=== PATIENT | male | born 1940 | race Caucasian/White ===

== ENCOUNTER 2020-12-04 08:00 | Observation (INO) ==
[~2020-12-04 08:00] MED LIST: Buffered Lidocaine 1% SYRIN 1 ml INTRADERM ONE; Dexamethasone IV 4 MG/ML VIAL 1 ml VIAL IV SLOW PU ONE; Famotidine IV 10 MG/ML 2 ml VIAL (20 mg) IV ONE; Lactated Ringers 1000 ml BAG 1,000 ML IV SCH
[2020-12-04] MEDS ORDERED: Propofol 10 mg/ml 100 ML BTL 0 ML ONE (09:27)
[2020-12-04] MEDS ORDERED: Acetaminophen IV 1 GM/100ML 1,000 MG/100 ML VIAL IVPB ONE (11:48)
[2020-12-04] MEDS ORDERED: Naloxone 0.4 mg VIAL 0.4 mg/ml 1 ml VIAL IV PRN (11:48)
[2020-12-04] MEDS ORDERED: Prochlorperazine 5 mg/ml 2 ml VIAL (10 mg) IV PRN (11:48)
[2020-12-04] MEDS ORDERED: Morphine 4 MG/ML VIAL (1 ml) IV PRN (11:48)
[2020-12-04] MEDS ORDERED: fentaNYL 100 mcg/2 ml 50 MCG/ML VIAL IV PRN (11:48)
[2020-12-04] MEDS ORDERED: Midazolam 2 mg/2 ml VIAL 1 mg/ml 2 ml VIAL (2 mg) ONE (12:14)
[2020-12-04] MEDS ORDERED: Ondansetron 4 mg VIAL 2 MG/ML 2 ml VIAL ONE (13:03)
[2020-12-04] MEDS ORDERED: fentaNYL 100 mcg/2 ml 50 MCG/ML VIAL ONE (13:21)
[2020-12-04] MEDS ORDERED: diPHENhydraMINE IV 50 MG/ML 1 ml VIAL (BENADRYL) IV PRN (13:39)
[2020-12-04] MEDS ORDERED: Ondansetron ODT 4 mg TAB 4 MG TAB PO PRN (13:39)
[2020-12-04] MEDS ORDERED: Magnesium Hydroxide LIQ 30 ML UDC PO PRN (13:39)
[2020-12-04] MEDS ORDERED: Lactulose 30 ml UDC PO PRN (13:39)
[2020-12-04] MEDS ORDERED: Ondansetron 4 mg VIAL 2 MG/ML 2 ml VIAL IV PRN (13:39)
[2020-12-04] MEDS ORDERED: Morphine 2 MG/ML SYRINGE IV PRN (13:39)
[2020-12-04] MEDS ORDERED: diPHENhydraMINE 25 mg TAB PO PRN (13:39)
[2020-12-04] MEDS ORDERED: Glycopyrrolate IV 0.2 MG/ML 1 ML VIAL ONE (13:47)
[2020-12-04] MEDS ORDERED: Acetaminophen IV 1 GM/100ML 100 ML ONE ×2 (13:47→15:20)
[2020-12-04] MEDS ORDERED: Propofol 10 MG/ML 20 ML BTL ONE (14:37)
[2020-12-04] MEDS ORDERED: PTO: Travoprost Z 0.004% OPHTH (NF) 2.5 ML BTL BOTH EYES SCH ×2 (18:00→20:00)
[2020-12-04] MEDS: Lactated Ringers 1000 ml BAG 1,000 ML IV SCH (18:18)
[2020-12-04] MEDS: ceFAZolin 1 GM ADVAN 1 GM in NS 0.9% 50 ML 50 ML IVPB SCH (20:51)
[2020-12-04] MEDS: Magnesium Hydroxide LIQ 30 ML UDC PO SCH (20:51)
[2020-12-05] MEDS: ceFAZolin 1 GM ADVAN 1 GM in NS 0.9% 50 ML 50 ML IVPB SCH ×2 (04:36→12:29)
[2020-12-05] MEDS: Lactated Ringers 1000 ml BAG 1,000 ML IV SCH (04:36)
[2020-12-05 05:49] LABS: Hematocrit 33 % (42-52); Hemoglobin 11.4 g/dL (14.0-18.0); Mean Platelet Volume 8.2 fL (7.4-10.4); Platelet Count 198 10^3/uL (150-450)
[2020-12-05 06:05] LABS: Calcium 8.6 mg/dL (8.6-10.3); EGFR African American 99.8 (>60); EGFR Non-African American 82.5 (>60)
[2020-12-05] MEDS ORDERED: Pneumococcal Vac 23-Polyvalent IM ONE (09:00)
[2020-12-05] MEDS ORDERED: Vitamin THERAPEUTIC TAB PO SCH (09:00)
[2020-12-05] MEDS ORDERED: PTO: Timolol 0.5% OPTH.SOL BTL BOTH EYES SCH (09:00)
[2020-12-05] MEDS: Magnesium Hydroxide LIQ 30 ML UDC PO SCH (09:59)
[2020-12-05 11:12] VITALS: BP 147/62
== END 2020-12-05 13:45 | disposition home or self-care (01) ==
LOC: AA 11:29 → INTOOBSV 11:29 → SSU 13:39 → UNDODISIN 19:30
PROVIDERS: ADMIT Orthopaedic Surgery Adult Reconstructive Orthopaedic Surgery; ATTEND Orthopaedic Surgery Adult Reconstructive Orthopaedic Surgery